=== PATIENT | male | born 1975 | race Caucasian/White ===

== ENCOUNTER → 2016-07-08 | Outpatient (CLI) | payer BC ==
[~2016-07-08] MED LIST: GADAVIST IV PRN
--- NOTE | 2016-07-08 10:50 | DIAGNOSTIC IMAGING REPORT ---
RIGHT INJECTION WRIST PRE MRI CLINICAL HISTORY: Right wrist pain COMPARISON STUDY: None FLUOROSCOPY TIME: 27 seconds. A single fluoroscopic spot image was acquired.. FINDINGS: A timeout was performed. The risks of the procedure were explained the patient informed consent was obtained. The patient was prepped and draped in sterile fashion. The skin was anesthetized 1% lidocaine. Under fluoroscopic guidance, 22-gauge needle was introduced into the radial scaphoid joint. A mixture of water-soluble contrast and gadolinium was instilled. A single fluoroscopic spot image confirmed intra-articular location of the contrast. The patient was sent to the MRI suite for imaging. IMPRESSION: Successful fluoroscopically guided right wrist arthrographic injection pre-MRI. Electronically signed by: Aj العلي M.D. 07/08/2016 10:49 AM Dictated Date/Time: 07/08/2016 10:47 AM
--- NOTE | 2016-07-08 11:26 | DIAGNOSTIC IMAGING REPORT ---
RIGHT WRIST MRI ARTHROGRAM HISTORY: Right wrist pain. TECHNIQUE: Multiplanar multisequence MRI of the right wrist was performed following the intra-articular injection of contrast. COMPARISON STUDY: None. FINDINGS: No fracture or dislocation within the right wrist. Normal marrow signal intensity seen throughout the visualized osseous structures. Cartilage spaces are maintained for age. The scapholunate and lunotriquetral ligaments appear intact. The radial attachment of the triangle fibrocartilage appears intact. There is small amount of increased signal within the ulnar attachments of the triangular fibrocartilage consistent with a small partial tear. There is disruption of the ulnar collateral ligament and meniscus homologue of the TFCC with contrast extending external to the joint space and into the volar/ulnar soft tissues. The extensor carpi ulnaris tendon appears intact. Remaining flexor and extensor tendons of the wrist appear to be normal in course, caliber, and signal intensity. IMPRESSION: 1. Full-thickness tear of the ulnar collateral ligament and meniscus homologue of the TFCC with small partial tears at the ulnar attachment of the triangular fibrocartilage . 2. The scapholunate and lunotriquetral ligaments appear intact. 3. No fracture or dislocation within the right wrist. Electronically signed by: Saul John M.D. 07/08/2016 11:24 AM Dictated Date/Time: 07/08/2016 11:18 AM
== END | disposition home or self-care (01) ==
LOC: C.MRIBC 09:40
PROVIDERS: ATTEND Physician Assistant
DX: M25.531 Pain in right wrist (principal)